=== PATIENT | female | born 1985 | race Caucasian/White ===

== ENCOUNTER 2019-05-05 20:07 | Emergency (ER) | payer SELFPAY ==
[~2019-05-05] VITALS: Ht 154.9 cm; Wt 81.6 kg
[2019-05-05 21:01] LABS: Urine Bacteria NONE SEEN /hpf (None Seen); Urine Blood Negative /uL (Negative); Urine Mucus FEW (None Seen); Urine Specific Gravity 1.018 (1.001-1.035); Urine WBC 3 /hpf (0 - 5)
[2019-05-05 22:09] VITALS: BP 122/72
[2019-05-05] MEDS ORDERED: cefTRIAXone SOD 1,000 MG VL IM ONE (22:45)
[2019-05-05] MEDS ORDERED: AZITHROMYCIN 250 MG TAB PO ONE (22:45)
== END 2019-05-05 23:50 | disposition home or self-care (01) ==
LOC: ER 20:11
DX: Z20.2 Contact with and (suspected) exposure to infections with a predominantly sexual mode of transmission (principal)
CPT/HCPCS: 81001; 96372; 99283; J0696